=== PATIENT | female | born 1960 | race Caucasian/White ===

== ENCOUNTER 2016-07-20 14:05 | Emergency (ER) | payer SELFPAY ==
[2016-07-20] MEDS ORDERED: ZESTRIL PO ONE (16:56)
--- NOTE | 2016-07-20 17:11 | Emergency Department Report ---
ED General Adult HPI - General Chief complaint: High BP Stated complaint: RX REFILL Time Seen by Provider: 07/20/16 16:55 Source: patient Mode of arrival: Ambulatory Limitations: No Limitations - History of Present Illness Initial comments: PT states she moved to [place] in Mar and does not have a PCP yet. PT states when she moved, she thought she had a refill on her Zestoretic, but she did not. PT states she last took her bp medication in February of 2016. PT states that she moved out to [place] to keep an eye on her daughter and grandchildren and it has been stressful, she is working apartment coordinator. PT states today she went to donate plasma and her bp was 175/120. PT states the waited and rechecked her bp and it was reading even higher, so she came to the ED for RX. PT denies any current physical complaints but states she is feeling anxious. MD Complaint: medication refill -: Gradual, hour(s) (bp has been elevated today for hours), month(s) (off of medication for months. ) Severity scale (0 -10): 0 Consistency: constant Associated Symptoms: denies: confusion, chest pain, headaches, nausea/vomiting, shortness of breath, syncope, weakness - Related Data Home Medications Medication Instructions Recorded Confirmed Last Taken Lisinopril/Hydrochlorothiazide 1 tab PO QDAY 08/28/15 08/28/15 08/28/15 [Zestoretic 20-12.5 mg] Previous Rx's Medication Instructions Recorded Last Taken Type Butalb/Acetamin/Caff 50-325-40 1 each PO Q4H PRN #20 tablet 08/28/15 Unknown Rx [Fioricet] Lisinopril/Hydrochlorothiazide 1 each PO QDAY #30 tablet 07/20/16 Unknown Rx [Zestoretic 20-12.5 mg] Allergies Allergy/AdvReac Type Severity Reaction Status Date / Time No Known Allergies Allergy Unverified 08/28/15 14:31 ED Review of Systems ROS: Stated complaint: RX REFILL Other details as noted in HPI Comment: All other systems reviewed and negative Constitutional: denies: chills, fever Respiratory: denies: shortness of breath, SOB with exertion, SOB at rest Cardiovascular: denies: chest pain Gastrointestinal: denies: abdominal pain, nausea, vomiting Neurological: denies: headache (but states she has hx of headaches ) Psychiatric: anxiety (pt states she is stressed having to come to ED) ED Past Medical Hx - Past Medical History Previous Medical History?: No Hx Hypertension: Yes Hx CVA: No Hx Heart Attack/AMI: No Hx Congestive Heart Failure: No Hx Diabetes: No Hx Deep Vein Thrombosis: No Hx Pulmonary Embolism: No Hx GERD: No Hx Liver Disease: No Hx Renal Disease: No Hx of Cancer: No Hx Sickle Cell Disease: No Hx Arthritis: No Hx Headaches / Migraines: Yes Hx Seizures: No Hx Kidney Stones: No Hx Psychiatric Treatment: No Hx Asthma: No Hx COPD: No Hx Tuberculosis: No Hx Dementia: No Hx HIV: No - Surgical History Past Surgical History?: No Hx Coronary Stent: No Hx Open Heart Surgery: No Hx Internal Defibrillator: No Hx Cholecystectomy: No Hx Appendectomy: No Hx Breast Surgery: No Additional Surgical History: tonsillectomy. hysterectomy - Social History Smoking Status: Never Smoker Substance Use Type: None - Medications Home Medications: Home Medications Medication Instructions Recorded Confirmed Last Taken Type Butalb/Acetamin/Caff 50-325-40 1 each PO Q4H PRN #20 tablet 08/28/15 Unknown Rx [Fioricet] Lisinopril/Hydrochlorothiazide 1 tab PO QDAY 08/28/15 08/28/15 08/28/15 History [Zestoretic 20-12.5 mg] Lisinopril/Hydrochlorothiazide 1 each PO QDAY #30 tablet 07/20/16 Unknown Rx [Zestoretic 20-12.5 mg] ED Physical Exam - General Limitations: No Limitations General appearance: alert, in no apparent distress - Head Head exam: Present: atraumatic, normocephalic, normal inspection - Eye Eye exam: Present: normal appearance, PERRL, EOMI. Absent: conjunctival injection - Neck Neck exam: Present: normal inspection, full ROM - Respiratory Respiratory exam: Present: normal lung sounds bilaterally. Absent: respiratory distress, wheezes, rales, chest wall tenderness - Cardiovascular Cardiovascular Exam: Present: regular rate, normal rhythm, normal heart sounds - Extremities Exam Extremities exam: Present: normal inspection, full ROM - Back Exam Back exam: Present: normal inspection, full ROM. Absent: tenderness, CVA tenderness (R), CVA tenderness (L), muscle spasm, paraspinal tenderness, vertebral tenderness - Neurological Exam Neurological exam: Present: alert, oriented X3, normal gait - Psychiatric Psychiatric exam: Present: normal affect, normal mood. Absent: agitated, anxious - Skin Skin exam: Present: warm, dry, intact, normal color ED Course Vital Signs 07/20/16 07/20/16 07/20/16 14:10 17:06 17:11 Temperature 98.3 F Pulse Rate 89 70 Respiratory 16 Rate Blood Pressure 176/120 183/120 Blood Pressure 176/120 178/112 [Right] O2 Sat by Pulse 100 Oximetry 07/20/16 18:24 Temperature Pulse Rate 74 Respiratory 18 Rate Blood Pressure Blood Pressure 158/100 [Right] O2 Sat by Pulse 97 Oximetry BP improving - Reevaluation(s) Reevaluation #1: 07/20/16 17:13 PT aware of plan of care. 07/20/16 17:49 PT states she is feeling less anxious. I checked pt's BP manually and had reading of 178/108. PT aware she will need to take her bp medication daily and follow up with PCP - Pulse Oximetry Interpretation Digit-Finger Initial Pulse Oximetry Readin Actions Taken: none ED Medical Decision Making - Differential Diagnosis medication refill, non compliance, htn Critical Care Time: No Critical care attestation.: If time is entered above; I have spent that time in minutes in the direct care of this critically ill patient, excluding procedure time. ED Disposition Clinical Impression: Essential (primary) hypertension Disposition: DISCHARGED TO HOME OR SELFCARE Is pt being admited?: No Does the pt Need Aspirin: No Condition: Stable Instructions: Hypertension (ED) Prescriptions: Lisinopril/Hydrochlorothiazide [Zestoretic 20-12.5 mg] 1 each PO QDAY #30 tablet Referrals: PRIMARY CAREMD [Primary Care Provider] - 3-5 Days EDWIN BARNETT MD [Staff Physician] - 3-5 Days [facility] [place] [Outside] - 3-5 Days [facility] [Outside] - 3-5 Days Forms: Work/School Release Form(ED) Time of Disposition: 17:51
[2016-07-20 18:25] VITALS: BP 158/100
== END 2016-07-20 18:14 | disposition home or self-care (01) ==
LOC: ED 14:05
DX: I10 Essential (primary) hypertension (principal); G43.909 Migraine, unspecified, not intractable, without status migrainosus
CPT/HCPCS: 99282